=== PATIENT | male | born 1940 | race Caucasian/White ===

== ENCOUNTER 2023-09-16 08:50 | Inpatient (IN) | payer OTHER, MEDICARE ==
[2023-09-16] VITALS (7 sets, daily range): BP systolic 137–152; BP diastolic 77–80; PULSE 62–94; RESP 16–46; TEMP 97.8–98.7; O2SAT 96–98
[~2023-09-16] VITALS: Ht 177.8 cm; Wt 81.6 kg
[2023-09-16] MEDS: LORazepam 2 MG/ML VIAL IM/IVP ONE (02:00)
[2023-09-16] MEDS: ALBUTEROL SULFATE/IPRATROPIU 3 ML SOL IH ONE (09:23)
[2023-09-16] MEDS: methylPREDNISolone SS 125 MG/2 ML VIAL IVP ONE (09:36)
[2023-09-16 09:40] LABS: BASOPHILS # (AUTO) 0.1 K/uL (0.00-0.22); BASOPHILS % (AUTO) 1.1 % (0.0-2.0); EOSINOPHILS # (AUTO) 0.6 K/uL (0-0.4); HEMATOCRIT 41.5 % (36-52); LYMPHOCYTES # (AUTO) 1.1 K/uL (2.0-11.5); LYMPHOCYTES % (AUTO) 22.1 % (20.5-51.1); MEAN CORPUSCULAR HEMOGLOBIN 31 pg (27-31); MEAN CORPUSCULAR HGB CONC 34 g/dL (33-37); MONOCYTES # (AUTO) 0.5 K/uL (0.8-1.0); MONOCYTES % (AUTO) 11.2 % (1.7-9.3); NEUTROPHILS # (AUTO) 2.6 K/uL (1.8-7.7); NEUTROPHILS % (AUTO) 53.6 % (42.2-75.2); PLATELET COUNT (AUTO) 294 K/uL (140-450); RED BLOOD CELL COUNT(AUTO) 4.47 MIL/uL (4.20-6.10); RED CELL DISTRIBUTION WIDTH 13.8 % (11.6-13.7); WHITE BLOOD COUNT (AUTO) 4.9 K/uL (4.8-10.8)
[2023-09-16 10:06] LABS: CALCIUM 9.8 mg/dL (8.5-10.1); CARBON DIOXIDE 26.2 mmol/L (21-32); CHLORIDE 103 mmol/L (98-107); CREATININE 1.5 mg/dL (0.6-1.3); GLUCOSE 97 mg/dL (74-106); POTASSIUM 4.2 mmol/L (3.5-5.1); SODIUM SERUM 139 mmol/L (136-145); UREA NITROGEN, BLOOD 26 mg/dL (7-18)
[2023-09-16 10:19] LABS: ALANINE AMINOTRANSFERASE 19 U/L (12-78); ALBUMIN 3.8 g/dL (3.4-5.0); ALKALINE PHOSPHATASE 80 U/L (50-136); ASPARTATE AMINOTRANSFERASE 22 U/L (15-37); BILIRUBIN,DIRECT 0.2 mg/dL (0.0-0.3); TOTAL BILIRUBIN 0.8 mg/dL (0.0-1.0); TOTAL PROTEIN, SERUM 7.6 g/dL (6.4-8.2)
[2023-09-16 10:51] LABS: FLU A ANTIGEN negative (NEGATIVE); FLU B ANTIGEN negative (NEGATIVE)
[2023-09-16] MEDS: ASPIRIN 325 MG TAB PO ONE (11:34)
[2023-09-16] MEDS ORDERED: ONDANSETRON 4 MG/2 ML VIAL IM/IVP PRN (12:10)
[2023-09-16] MEDS ORDERED: POTASSIUM CHLORIDE 10 MEQ TABER PO PRN (12:10)
[2023-09-16] MEDS ORDERED: guaiFENesin DM 200/20 MG-10 ML 10 ML UDC PO PRN (12:10)
[2023-09-16] MEDS ORDERED: DOCUSATE SODIUM 100 MG GELCAP PO PRN (12:10)
[2023-09-16] MEDS ORDERED: ZOLPIDEM 5 MG TAB PO PRN (12:10)
[2023-09-16] MEDS ORDERED: ACETAMINOPHEN 325 MG TAB PO PRN (12:10)
[2023-09-16] MEDS ORDERED: HYDROcodone/APAP 7.5/325 MG 1 TAB PO PRN (12:10)
[2023-09-16] MEDS ORDERED: DONE10TA37 PO (13:03)
[2023-09-16] MEDS ORDERED: AMLO10TA88 PO (13:03)
[2023-09-16] MEDS ORDERED: APIX2.5 PO (13:03)
[2023-09-16] MEDS ORDERED: METO25TE47 PO (13:03)
[2023-09-16] MEDS ORDERED: DOXE3TAB3 PO (13:03)
[2023-09-16] MEDS ORDERED: TAMS0.4C97 PO (13:03)
[2023-09-16] MEDS: NACL 0.9% 1,000 ML IV SCH (13:06)
[2023-09-16] MEDS ORDERED: NITROGLYCERIN 0.4 MG TAB SL PRN (14:40)
[2023-09-16] MEDS: CRUSHER, PILL MC ONE (20:47)
[2023-09-16] MEDS: METOPROLOL 25 MG TAB PO SCH (20:57)
[2023-09-16] MEDS: DONEPEZIL 10 MG TAB PO SCH (20:58)
[2023-09-16] MEDS: APIXABAN 2.5 MG TAB PO SCH (20:59)
[2023-09-17 04:30] VITALS: BP 152/85; PULSE 71; PULSE 75; RESP 18; TEMP 98.9; O2SAT 96
[2023-09-17 05:42] LABS: BASOPHILS % (AUTO) 0.2 % (0.0-2.0); EOSINOPHILS % (AUTO) 0.1 % (0.0-4.0); HEMATOCRIT 43.1 % (36-52); HEMOGLOBIN 14.5 g/dL (12.0-18.0); LYMPHOCYTES # (AUTO) 0.9 K/uL (2.0-11.5); MEAN CORPUSCULAR HEMOGLOBIN 31 pg (27-31); MEAN CORPUSCULAR HGB CONC 34 g/dL (33-37); MEAN CORPUSCULAR VOLUME 93.2 fL (80-94); MONOCYTES % (AUTO) 7.3 % (1.7-9.3); NEUTROPHILS # (AUTO) 11.1 K/uL (1.8-7.7); NEUTROPHILS % (AUTO) 85.4 % (42.2-75.2); PLATELET COUNT (AUTO) 339 K/uL (140-450); RED BLOOD CELL COUNT(AUTO) 4.62 MIL/uL (4.20-6.10); RED CELL DISTRIBUTION WIDTH 13.5 % (11.6-13.7)
[2023-09-17 06:29] LABS: ALANINE AMINOTRANSFERASE 9 U/L (12-78); ALBUMIN 4.1 g/dL (3.4-5.0); ALKALINE PHOSPHATASE 90 U/L (50-136); ANION GAP 16.9 (8-16); ASPARTATE AMINOTRANSFERASE 28 U/L (15-37); CARBON DIOXIDE 22.2 mmol/L (21-32); CHLORIDE 103 mmol/L (98-107); CREATININE 1.4 mg/dL (0.6-1.3); POTASSIUM 4.1 mmol/L (3.5-5.1); SODIUM SERUM 138 mmol/L (136-145); TOTAL PROTEIN, SERUM 8.2 g/dL (6.4-8.2)
[2023-09-17 07:33] LABS: GLUCOSE 125 mg/dL (74-106); UREA NITROGEN, BLOOD 28 mg/dL (7-18)
[2023-09-17 08:00] VITALS: BP 124/88; PULSE 72; PULSE 80; RESP 18; TEMP 98.1; O2SAT 98
[2023-09-17] MEDS: TAMSULOSIN 0.4 MG CAP PO SCH (08:23)
[2023-09-17] MEDS: ECOTRIN 81 MG TABEC PO SCH (09:00)
[2023-09-17] MEDS: PANTOPRAZOLE 40 MG TABEC PO SCH (09:00)
[2023-09-17] MEDS: amLODIPine 5 MG TAB PO SCH (09:00)
[2023-09-17 10:45] LABS: APPEARANCE,URINE CLEAR (CLEAR); BILIRUBIN,URINE NEGATIVE (NEGATIVE); BLOOD, URINE 1+ (NEGATIVE); COLOR,URINE YELLOW (YELLOW); LEUKOCYTE ESTERASE ,URINE NEGATIVE (NEGATIVE); NITRITE, URINE NEGATIVE (NEGATIVE); PROTEIN,URINE TRACE (NEGATIVE); UGLUCOSE NEGATIVE (NEGATIVE); UROBILINOGEN,URINE 0.2 EU/dL (0.2 - 1)
[2023-09-17 11:24] LABS: BACTERIA,URINE FEW /HPF (None Seen); RBC,URINE 0-5 /HPF (0-5); SQUAMOUS EPITHELIAL CELL,UR None Seen /LPF (0-3 (FEW)); WBC,URINE 0-5 /HPF (0-5)
[2023-09-17 11:32] LABS: INR 1.03 (0.8-1.2); PROTHROMBIN TIME 10.8 secs (10.8-13.4)
[2023-09-17 12:00] VITALS: BP 146/80; PULSE 82; RESP 18; TEMP 97.8; O2SAT 96
== END 2023-09-17 12:30 | disposition left against medical advice (07) | DRG 640 ==
LOC: MED 08:50 → MTU 12:11
PROVIDERS: ADMIT Student in an Organized Health Care Education/Training Program; ATTEND Student in an Organized Health Care Education/Training Program
DX: E86.0 Dehydration (principal); I21.A1 Myocardial infarction type 2; N17.0 Acute kidney failure with tubular necrosis; I10 Essential (primary) hypertension; Z53.21 Procedure and treatment not carried out due to patient leaving prior to being seen by health care provider; Z79.01 Long term (current) use of anticoagulants; Z79.899 Other long term (current) drug therapy; E78.5 Hyperlipidemia, unspecified; I48.91 Unspecified atrial fibrillation
CPT/HCPCS: 36415; 71045; 80048; 80053; 80076; 81001; 83880; 84484; 85025; 85610; 87040; 87081; 87086; 93005; 93970; 99285; J0696; J2060; J2919; J7060; Q0092

== ENCOUNTER 2023-09-17 14:01 | Inpatient (IN) | payer OTHER, MEDICARE ==
[~2023-09-17] VITALS: Ht 180.3 cm; Wt 81.6 kg
[~2023-09-17 14:01] MED LIST: AMLO10TA88 PO; APIX2.5 PO; DONE10TA37 PO; DOXE3TAB3 PO; METO25TE47 PO; TAMS0.4C97 PO
[2023-09-17 14:12] VITALS: BP 177/81; PULSE 89; RESP 18; TEMP 97.2; O2SAT 98
[2023-09-17 14:56] VITALS: PULSE 82; O2SAT 95
[2023-09-17 14:59] LABS: BASOPHILS % (AUTO) 0.1 % (0.0-2.0); EOSINOPHILS % (AUTO) 0.1 % (0.0-4.0); HEMATOCRIT 43.6 % (36-52); HEMOGLOBIN 14.5 g/dL (12.0-18.0); LYMPHOCYTES # (AUTO) 0.9 K/uL (2.0-11.5); MEAN CORPUSCULAR HEMOGLOBIN 31 pg (27-31); MEAN CORPUSCULAR HGB CONC 33 g/dL (33-37); MEAN CORPUSCULAR VOLUME 92.6 fL (80-94); MONOCYTES # (AUTO) 1.7 K/uL (0.8-1.0); MONOCYTES % (AUTO) 11.4 % (1.7-9.3); NEUTROPHILS # (AUTO) 12.4 K/uL (1.8-7.7); NEUTROPHILS % (AUTO) 82.6 % (42.2-75.2); PLATELET COUNT (AUTO) 361 K/uL (140-450); RED CELL DISTRIBUTION WIDTH 13.9 % (11.6-13.7); WHITE BLOOD COUNT (AUTO) 15.1 K/uL (4.8-10.8)
[2023-09-17 15:14] LABS: ANION GAP 16.3 (8-16); CALCIUM 9.9 mg/dL (8.5-10.1); CARBON DIOXIDE 24.6 mmol/L (21-32); CHLORIDE 104 mmol/L (98-107); CREATININE 1.6 mg/dL (0.6-1.3); GLUCOSE 117 mg/dL (74-106); POTASSIUM 3.9 mmol/L (3.5-5.1); SODIUM SERUM 141 mmol/L (136-145); UREA NITROGEN, BLOOD 32 mg/dL (7-18)
[2023-09-17 15:16] LABS: INR 1.11 (0.8-1.2); LYMPHOCYTES % (AUTO) 5.8 % (20.5-51.1); PROTHROMBIN TIME 11.6 secs (10.8-13.4)
[2023-09-17] MEDS ORDERED: ONDANSETRON 4 MG/2 ML VIAL IM/IVP PRN (16:00)
[2023-09-17] MEDS ORDERED: ZOLPIDEM 5 MG TAB PO PRN (16:00)
[2023-09-17] MEDS ORDERED: POTASSIUM CHLORIDE 10 MEQ TABER PO PRN (16:00)
[2023-09-17] MEDS ORDERED: guaiFENesin DM 200/20 MG-10 ML 10 ML UDC PO PRN (16:00)
[2023-09-17] MEDS ORDERED: HYDROcodone/APAP 7.5/325 MG 1 TAB PO PRN (16:00)
[2023-09-17] MEDS ORDERED: ACETAMINOPHEN 325 MG TAB PO PRN (16:00)
[2023-09-17] MEDS ORDERED: DOCUSATE SODIUM 100 MG GELCAP PO PRN (16:00)
[2023-09-17] MEDS ORDERED: ATORVASTATIN 20 MG TAB PO SCH (17:00)
[2023-09-17] MEDS ORDERED: METOPROLOL 25 MG TAB PO SCH (21:00)
[2023-09-17] MEDS ORDERED: APIXABAN 2.5 MG TAB PO SCH (21:00)
[2023-09-18] MEDS ORDERED: TAMSULOSIN 0.4 MG CAP PO SCH (09:00)
[2023-09-18] MEDS ORDERED: cefTRIAXone 1,000 MG in LIDOCAINE MPF 1% 2.1 ML IM SCH (09:00)
[2023-09-18] MEDS ORDERED: PANTOPRAZOLE 40 MG TABEC PO SCH (09:00)
[2023-09-18] MEDS ORDERED: DONEPEZIL 10 MG TAB PO SCH (09:00)
[2023-09-18] MEDS ORDERED: lisinopriL 5 MG TAB PO SCH (09:00)
[2023-09-18] MEDS ORDERED: amLODIPine 5 MG TAB PO SCH (16:00)
== END 2023-09-17 16:32 | disposition left against medical advice (07) | DRG 282 ==
LOC: MED 14:01 → MTU 15:59
PROVIDERS: ADMIT Student in an Organized Health Care Education/Training Program; ATTEND Student in an Organized Health Care Education/Training Program
DX: I21.4 Non-ST elevation (NSTEMI) myocardial infarction (principal); I10 Essential (primary) hypertension; Z53.21 Procedure and treatment not carried out due to patient leaving prior to being seen by health care provider; Z79.01 Long term (current) use of anticoagulants; Z79.899 Other long term (current) drug therapy
CPT/HCPCS: 36415; 71045; 80048; 83880; 84484; 85025; 85610; 85730; 93005; 99285